=== PATIENT | female | born 1995 | race Caucasian/White ===

== ENCOUNTER 2017-09-09 06:00 | Emergency (ER) | payer OTHER ==
[~2017-09-09] VITALS: Ht 177.8 cm; Wt 60.9 kg
[2017-09-09 06:05] VITALS: BP 122/81
== END 2017-09-09 08:05 | disposition left against medical advice (07) ==
LOC: EME 06:00
DX: R10.9 Unspecified abdominal pain (principal); Z53.21 Procedure and treatment not carried out due to patient leaving prior to being seen by health care provider
CPT/HCPCS: 80053; 81003; 84702; 85027